=== PATIENT | female | born 1945 | race Caucasian/White ===

== ENCOUNTER → 2019-05-27 16:06 | Outpatient (CLI) | payer MEDICARE, SELFPAY ==
--- NOTE | ~2019-05-27 | XR_ITS ---
EXAMINATION: XR chest 2V EXAM DATE: 05/27/2019 16:22 INDICATION: Acute lower respiratory tract infection, flu. Cough and aches. History left-sided breast cancer. TECHNIQUE: Frontal and lateral projections of the chest obtained and reviewed. There is no prior eva dy for comparison. FINDINGS: Small amount of right middle lobe airspace disease consistent with developing pneumonia. T he lungs are otherwise clear. There are no pleural effusions. The cardiomediastinal silhouette is w ithin normal limits. There is no pneumothorax suspected. The bones and soft tissues are unremarkabl e. IMPRESSION: Right middle lobe subsegmental airspace disease could be developing pneumonia. Reviewed, dictated and finalized at location A. GHT FLAGMAN
== END ==
PROVIDERS: PCP Family Medicine; Visit Provider Family Medicine
DX: J22 Unspecified acute lower respiratory infection (principal)
CPT/HCPCS: 71046

== ENCOUNTER → 2019-06-26 12:46 | Outpatient (CLI) | payer MEDICARE, SELFPAY ==
--- NOTE | ~2019-06-26 | XR_ITS ---
XR chest 2V DATE: 06/26/2019 13:02 INDICATION: Pneumonia. Unspecified organism. TECHNIQUE: PA and lateral views COMPARISON: 05/27/2019 PA and lateral chest FINDINGS: Normal heart size. No hilar or mediastinal enlargement. No pulmonary infiltrate or consol idation, pulmonary vascular congestion or pleural effusion or pneumothorax. Suture anchor device at right humeral head. IMPRESSION: No active cardiopulmonary disease Reviewed, dictated and finalized at location B.
== END ==
PROVIDERS: PCP Family Medicine; Visit Provider Family Medicine
DX: J18.9 Pneumonia, unspecified organism (principal)
CPT/HCPCS: 71046

== ENCOUNTER 2019-10-26 13:21 | Outpatient (CLI) | payer MEDICARE, SELFPAY ==
[2019-10-26 13:36] LABS: Basophils Percent Auto 0.5 % (0.2-1.2); Eosinophils Absolute Auto 0.2 K/mm3 (0-0.3); Eosinophils Percent Auto 2.5 % (0-4.4); Hematocrit 44.7 % (37.0-47.0); Hemoglobin 14.8 g/dL (12.0-15.0); Immature Granulocyte Absolute 0.02 K/mm3 (0.00-0.031); Immature Granulocyte Percent A 0.3 % (0-0.5); Lymphocytes Percent Auto 31.5 % (18.3-44.2); Mean Corpuscular HGB Conc 33.1 g/dl (32-36); Mean Corpuscular Hemoglobin 29.5 pg (26-34); Mean Corpuscular Volume 89.2 fl (80-100); Mean Platelet Volume 9.1 fl (7.4-10.4); Monocytes Absolute Auto 0.7 K/mm3 (0.1-0.6); Monocytes Percent Auto 9.3 % (2.6-8.5); Neutrophils Absolute Auto 4.3 K/mm3 (1.3-6.7); Neutrophils Percent Auto 55.9 % (45.5-73.1); Platelet Count Result 224 k/mm3 (150-375); Red Blood Count 5.01 M/mm3 (4.2-5.4); White Blood Count 7.6 K/mm3 (4.5-10.0)
[2019-10-26 16:28] LABS: Alanine Aminotransferase 21 U/L (4-35); Albumin Level 4.4 g/dL (3.5-5.1); Alkaline Phosphatase 88 U/L (38-126); Aspartate Amino Transferase 33 U/L (14-36); Bilirubin,Total 0.3 mg/dL (0.2-1.3); Blood Urea Nitrogen 22 mg/dL (7-17); Calcium 9.2 mg/dL (8.4-10.2); Carbon Dioxide 24 mmol/L (22-30); Chloride 104 mmol/L (98-107); Estimated Glomerular Filt Rate 55; Glucose 91 mg/dL (65-105); Potassium 4.3 mmol/L (3.4-5.0); Sodium 136 mmol/L (137-145)
[2019-10-29 06:13] LABS: CA 27.29 32 U/mL (<38)
== END 2019-10-26 13:22 | disposition home or self-care (01) ==
PROVIDERS: PCP Family Medicine; Visit Provider Internal Medicine Hematology & Oncology
DX: C50.112 Malignant neoplasm of central portion of left female breast (principal)
CPT/HCPCS: 36415; 80053; 85025; 86300

== ENCOUNTER 2019-11-18 08:29 | Outpatient (CLI) | payer MEDICARE, SELFPAY ==
--- NOTE | ~2019-11-18 | DEXA_ITS ---
Bone Density Report Name: Karolina Sterling Age: 73 Sex: Female Ethnicity: White Date of : 1945 Indication: osteopenia; cancer; hysterectomy; Referring Provider: Neyda Kevin Study: Bone densitometry was performed. Exam Date: November 18, 2019 Accession number: [id number] Bone Density: Region BMD T-score Z-score Classification AP Spine (L1-L4) 0.900 -1.3 0.9 Osteopenia Femoral Neck (Left) 0.677 -1.6 0.4 Osteopenia Total Hip (Left) 0.872 -0.6 1.1 Normal Total Hip Bilateral Avg 0.890 -0.5 1.3 Normal Femoral Neck (Right) 0.682 -1.5 0.5 Osteopenia Total Hip (Right) 0.906 -0.3 1.4 Normal World Health Organization criteria for BMD impression classify patients as: Normal (T-score at or above -1.0), Osteopenia (T-score between -1.0 and -2.5), or Osteoporosis (T-score at or below -2.5). 10-year Fracture Risk(1): Major Osteoporotic Fracture 10% Hip Fracture 1.7% Reported Risk Factors: [place] (), Neck BMD=0.682, BMI=31.5 (1) FRAX(R) Version 3.08. Fracture probability calculated for an untreated patient. Fracture probability may be lower if the patient has received treatment. Previous Exams: Region Exam Age BMD T-score BMD Change BMD Change Date g/cm2 vs Baseline vs Previous AP Spine(L1-L4) 11/18/2019 73 0.900 -1.3 -0.013(-1.4%) -0.013(-1.4%) 09/03/2017 71 0.914 -1.2 Total Hip(Left) 11/18/2019 73 0.872 -0.6 -0.047(-5.1%)* -0.047(-5.1%)* 09/03/2017 71 0.919 -0.2 Total Hip(Right) 11/18/2019 73 0.906 -0.3 0.004(0.4%) 0.004(0.4%) 09/03/2017 71 0.903 -0.3 *Denotes significance at 95% confidence level, LSC for AP Spine = 0.022 g/cm2, LSC for Total Hip = 0.027 g/cm2 Clinical Information Provided by Patient: Has used the following medications: Vitamin D, Calcium Has the following medical conditions: Cancer, Hysterectomy Patient maximum height was 62.5 Menopause Age: 48 No regular weight bearing exercise Drinks caffeinated beverages Onset of menses at age 13 Number of children 1 Impression: The patient has low bone mass, based on the Left Femoral Neck T-score. The patient has an estimated ten-year risk of hip fracture of 1.7% and an estimated ten-year risk of major fracture of 10%, based on the WHO FRAX algorithm. The BMD for the Total Hip(Left) decreased, changing by -5.1% since the last DXA exam. Discussion: BONE DENSITY IS LOW AT ONE OR MORE SKELETAL SITES. This patient's lowest T-score is low at on
== END 2019-11-18 08:30 | disposition home or self-care (01) ==
PROVIDERS: PCP Family Medicine; Visit Provider Nurse Practitioner Adult Health
DX: Z79.811 Long term (current) use of aromatase inhibitors (principal); M85.88 Other specified disorders of bone density and structure, other site; M85.852 Other specified disorders of bone density and structure, left thigh; M85.851 Other specified disorders of bone density and structure, right thigh
CPT/HCPCS: 77080

== ENCOUNTER 2020-04-05 06:50 | Outpatient (NON) | payer MEDICARE, SELFPAY ==
[2020-04-05 18:45] LABS: SARS-CoV-2 RNA PCR Negative
== END 2020-04-05 06:51 ==
PROVIDERS: PCP Family Medicine; Visit Provider Physician Assistant
DX: R05 Cough (principal); Z20.828 Contact with and (suspected) exposure to other viral communicable diseases
CPT/HCPCS: 87635; C9803; U0003

== ENCOUNTER 2020-04-21 10:01 | Outpatient (CLI) | payer MEDICARE, SELFPAY ==
[2020-04-21 10:16] LABS: Basophils Percent Auto 0.6 % (0.2-1.2); Eosinophils Absolute Auto 0.1 K/mm3 (0-0.3); Eosinophils Percent Auto 1.9 % (0-4.4); Hematocrit 44.5 % (37.0-47.0); Hemoglobin 14.7 g/dL (12.0-15.0); Immature Granulocyte Absolute 0.02 K/mm3 (0.00-0.031); Immature Granulocyte Percent A 0.3 % (0-0.5); Lymphocytes Absolute Auto 2.15 K/mm3 (0.9-3.2); Lymphocytes Percent Auto 34.7 % (18.3-44.2); Mean Corpuscular Hemoglobin 29.5 pg (26-34); Mean Corpuscular Volume 89.4 fl (80-100); Mean Platelet Volume 9.5 fl (7.4-10.4); Monocytes Absolute Auto 0.6 K/mm3 (0.1-0.6); Monocytes Percent Auto 10.3 % (2.6-8.5); Neutrophils Absolute Auto 3.2 K/mm3 (1.3-6.7); Neutrophils Percent Auto 52.2 % (45.5-73.1); Platelet Count Result 214 k/mm3 (150-375); Red Blood Count 4.98 M/mm3 (4.2-5.4); Red Cell Distribution Width 12.7 % (11.5-14.5); White Blood Count 6.2 K/mm3 (4.5-10.0)
[2020-04-21 12:26] LABS: Alanine Aminotransferase 26 U/L (4-35); Albumin Level 4.1 g/dL (3.5-5.1); Alkaline Phosphatase 84 U/L (38-126); Anion Gap 7 mmol/L (8-16); Aspartate Amino Transferase 35 U/L (14-36); Bilirubin,Total 0.6 mg/dL (0.2-1.3); Blood Urea Nitrogen 20 mg/dL (7-17); Calcium 9.3 mg/dL (8.4-10.2); Carbon Dioxide 28 mmol/L (22-30); Chloride 104 mmol/L (98-107); Estimated Glomerular Filt Rate 49; Glucose 98 mg/dL (65-105); Potassium 4.5 mmol/L (3.4-5.0); Sodium 139 mmol/L (137-145)
[2020-04-26 06:14] LABS: CA 27.29 25 U/mL (<38)
== END 2020-04-21 10:02 | disposition home or self-care (01) ==
LOC: ANHLAB 10:02
PROVIDERS: PCP Family Medicine; Visit Provider Internal Medicine Hematology & Oncology
DX: C50.112 Malignant neoplasm of central portion of left female breast (principal); Z17.0 Estrogen receptor positive status [ER+]
CPT/HCPCS: 36415; 80053; 85025; 86300

== ENCOUNTER → 2020-06-10 09:25 | Outpatient (CLI) | payer MEDICARE, SELFPAY ==
--- NOTE | ~2020-06-10 | CT_ITS ---
EXAMINATION: CT sinus wo con EXAM DATE: 06/10/2020 09:38 INDICATION: Chronic sinusitis. Breast cancer. TECHNIQUE: Spiral CT of the sinuses was acquired in the axial plane. Coronal and sagittal reformatte d images were also reviewed. The dose-length product (DLP) for this examination was 269.39 mGy-cm. Iterative reconstruction (ASIR) was used as dose reduction technique. There is no prior study for co mparison. FINDINGS: The sinuses are normally developed. The sinuses are well aerated. The ostiomeatal unit s are patent. There is no sinus wall thickening. There is mild to moderate S-shaped nasal septal deviation. The mastoid air cells and middle ears are well aerated. External auditory canals are pa tent. The orbits and visualized soft tissues are unremarkable. IMPRESSION: Mild to moderate S-shaped nasal septal deviation. Clear sinuses. Reviewed, dictated and finalized at location A. OVEN TENDER
== END ==
PROVIDERS: PCP Family Medicine; Visit Provider Otolaryngology
DX: J32.9 Chronic sinusitis, unspecified (principal); J34.2 Deviated nasal septum
CPT/HCPCS: 70486

== ENCOUNTER 2021-02-28 01:02 | Day surgery (SDC) | payer MEDICARE, SELFPAY ==
[2021-02-14 14:05] VITALS: BMI 30.6
[2021-02-28 06:47] VITALS: BP 133/62; PULSE 80; RESP 16; TEMP 36.6; O2SAT 97; BMI 30.4
[2021-02-28] MEDS: LACTATED RINGERS 1,000 ML 150 ML IV CONT (07:08)
--- NOTE | 2021-02-28 07:22 | WPDANESEPPF ---
Anes - Initial Pre Proc Eval Procedure: Operation Date: 02/28/21 08:00 Proposed Procedures p Screening Colonoscopy - Sushant Soliman MD Date/Time: 02/28/21 07:22 Surgeon: Sushant Soliman MD Pre Op Diagnosis: neoplasm screening Patient Data Age: 75 Gender: F Height: 1.57 m Weight: 75.5 kg Last Vital Signs Temp 36.6 C 02/28/21 06:47 Pulse 80 02/28/21 06:47 Resp 16 02/28/21 06:47 BP 133/62 02/28/21 06:47 Pulse Ox 97 02/28/21 06:47 Allergies Allergy/AdvReac Type Severity Reaction Status Date / Time No Known Allergies Allergy Verified 02/28/21 06:56 Home Medications Medication Instructions Recorded Confirmed Type anastrozole 1 mg tablet 1 mg PO DAILY 03/09/20 02/28/21 History simvastatin 20 mg tablet 20 mg PO DAILY #90 tablet 05/13/20 02/28/21 Rx citalopram 20 mg tablet 30 mg PO DAILY #135 tablet 11/13/20 02/28/21 Rx levothyroxine 50 mcg tablet See Rx Instructions .ROUTE 02/06/21 02/28/21 Rx .COMPLEX #90 tablet Nexium 20 mg PO DAILY 02/14/21 02/28/21 History azelastine 2 spray INTRANASAL DAILY 02/14/21 02/28/21 History Patient hx anesthesia problems: none Family hx anesthesia problems: none Results Review: All pre-operative results and documents have been reviewed as part of the pre-operative evaluation. [facility] Past Medical History Medical History Breast cancer Chronic renal insufficiency, stage II (mild) Chronic renal insufficiency, stage III (moderate) Encounter for immunization FH: colon cancer Gastroesophageal reflux Hyperlipidemia, unspecified Hypothyroidism Immunodeficiency Major depressive disorder with single episode, in full remission Pure hypercholesterolemia Vitamin D deficiency Surgical History Surgical History H/O colonoscopy History of partial hysterectomy Family History Family History Mother Depression Family history of alcoholism Father Family history of malignant neoplasm Social History Social History Smoking packs per day: 0.25 Smoking cigarettes per day: 5.0 Years smoked: 1 Smoking pack-years: 0.25 Smoking status: Former smoker Tobacco type: cigarettes Second hand tobacco smoke exposure: No Alcohol intake: current Alcohol use details: socially Substance use: never Substance use type: does not use Living arrangements: with family Gender identity (if verbalized by the patient): Female Spiritual care concerns: No Anes - Eval Final PreProcedure Day of Procedure 02/28/21 07:22 Patient weight: obese Heart: regular rate and rhythm Lungs: clear to auscultation Airway: Mallampati scale class II Neurological: alert and oriented Last oral intake: >/= 8 hours ASA classification: III Emergent: no Anesthetic plan: proceed Anesthesia type and monitoring: general GIVS and standard monitoring Results Review: All pre-operative results and documents have been reviewed as part of the pre-operative evaluation. Informed Consent: The patient's anesthetic plan and its attendant risks and benefits were discussed with the patient/family/POA. Questions were solicited and answers provided to the satisfaction of the patient/family/POA.
--- NOTE | 2021-02-28 07:56 | WPDGICN ---
Assessment and Plan Assessment and plan (1) Family history of colon cancer in mother: Code(s): Z80.0 - Family history of malignant neoplasm of digestive organs Status: Acute Assessment and Plan: Patient is a family history of colon cancer in both mother and father. For this reason surveillance colonoscopy is recommended now and at intervals in the future. Further recommendations will be given after endoscopy. GI Consult Note Consult date/time: 02/28/21 07:56 HPI: Karolina Sterling is a 75 year old female Presents for screening colonoscopy. Patient's current weight appetite and bowel movements are normal. She denies abdominal pain. She has had no bleeding. Her last colonoscopy 2004. Family history is significant both mother and father have had colon cancer. Patient states that her weight appetite bowel movements are normal. She denies abdominal pain Review of Systems Review of Systems: All systems reviewed & are unremarkable except as noted in HPI and below PMFSH Past Medical History Medical History Breast cancer Chronic renal insufficiency, stage II (mild) Chronic renal insufficiency, stage III (moderate) Encounter for immunization FH: colon cancer Gastroesophageal reflux Hyperlipidemia, unspecified Hypothyroidism Immunodeficiency Major depressive disorder with single episode, in full remission Pure hypercholesterolemia Vitamin D deficiency Surgical History Surgical History H/O colonoscopy History of partial hysterectomy Family History Family History Mother Depression Family history of alcoholism Father Family history of malignant neoplasm Social History Social History Smoking packs per day: 0.25 Smoking cigarettes per day: 5.0 Years smoked: 1 Smoking pack-years: 0.25 Smoking status: Former smoker Tobacco type: cigarettes Second hand tobacco smoke exposure: No Alcohol intake: current Alcohol use details: socially Substance use: never Substance use type: does not use Living arrangements: with family Gender identity (if verbalized by the patient): Female Spiritual care concerns: No Meds Home Medications and Allergies Home Medications Medication Instructions Recorded Confirmed Type anastrozole 1 mg tablet 1 mg PO DAILY 03/09/20 02/28/21 History simvastatin 20 mg tablet 20 mg PO DAILY #90 tablet 02/05/21 11/23/21 Rx citalopram 20 mg tablet 30 mg PO DAILY #135 tablet 11/13/20 02/28/21 Rx levothyroxine 50 mcg tablet See Rx Instructions .ROUTE 02/06/21 02/28/21 Rx .COMPLEX #90 tablet Nexium 20 mg PO DAILY 02/14/21 02/28/21 History azelastine 2 spray INTRANASAL DAILY 02/14/21 02/28/21 History Allergies Allergy/AdvReac Type Severity Reaction Status Date / Time No Known Allergies Allergy Verified 02/28/21 06:56 Vital Signs Vital Signs - 24 hr 02/28/21 06:47 Temperature 97.8 F Pulse Rate 80 Respiratory Rate 16 Blood Pressure 133/62 Pulse Oximetry 97 Exam Narrative: physical exam reveals patient to be alert. Vital Signs in stable. HEENT exam is unremarkable. Patient is anicteric. Lungs are clear to auscultation and percussion. Heart is without murmur or extra sounds. Abdominal exam bowel sounds are present soft nontender with no hepatosplenomegaly. Digital external rectal exam is normal.
[2021-02-28 08:30] VITALS: BP 102/55; PULSE 78; RESP 22; O2SAT 96
[2021-02-28 08:40] VITALS: BP 118/58; PULSE 66; RESP 24; O2SAT 97
[2021-02-28 08:50] VITALS: BP 128/72; PULSE 68; RESP 22; O2SAT 98
== END 2021-02-28 09:01 | disposition home or self-care (01) ==
PROVIDERS: PCP Family Medicine; Visit Provider Internal Medicine Gastroenterology
PROC: 0DJD8ZZ Inspection of Lower Intestinal Tract, Via Natural or Artificial Opening Endoscopic (ICD-10-PCS; CPT 45378; principal; 2021-02-28 08:00)
DX: Z12.11 Encounter for screening for malignant neoplasm of colon (principal); K57.30 Diverticulosis of large intestine without perforation or abscess without bleeding; K64.8 Other hemorrhoids; Z80.0 Family history of malignant neoplasm of digestive organs; K21.9 Gastro-esophageal reflux disease without esophagitis; N18.30 Chronic kidney disease, stage 3 unspecified; E78.5 Hyperlipidemia, unspecified; E03.9 Hypothyroidism, unspecified; E78.00 Pure hypercholesterolemia, unspecified; E55.9 Vitamin D deficiency, unspecified; Z87.891 Personal history of nicotine dependence; Z85.3 Personal history of malignant neoplasm of breast
CPT/HCPCS: G0105; J2704; J7120

== ENCOUNTER → 2021-10-17 09:06 | Outpatient (CLI) | payer MEDICARE, SELFPAY ==
--- NOTE | ~2021-10-17 | XR_ITS ---
XR lumbar spine 2-3V DATE: 10/17/2021 09:33 INDICATION: Low back pain TECHNIQUE: AP, lateral, coned lateral lumbosacral views COMPARISON: None FINDINGS: Osteopenia. Severe degenerative disc disease at L5-S1 1. Mild degenerative disc disease at L1-L3 4, L4-5. Prominent degenerative change is noted lower thoracic spine. No fracture or bone destruction or spondylolisthesis. The lumbar pedicles are intact. Degenerative change at the apophyseal joints of lower lumbar and lumbosacral area. The sacroiliac joints are intact. IMPRESSION: Osteopenia Prominent degenerative spurring of the lower thoracic spine Severe degenerative disc disease at L5-S1 and mild degenerative disc disease elsewhere in the lumbar spine Reviewed, dictated and finalized at location A. IMPRESSION: Osteopenia Prominent degenerative spurring of the lower thoracic spine Severe degenerative disc disease at L5-S1 and mild degenerative disc disease el sewhere in the lumbar spine
== END ==
PROVIDERS: PCP Family Medicine; Visit Provider Family Medicine
DX: M54.50 Low back pain, unspecified (principal); M85.88 Other specified disorders of bone density and structure, other site; M77.8 Other enthesopathies, not elsewhere classified; M51.36 Other intervertebral disc degeneration, lumbar region
CPT/HCPCS: 72100

== ENCOUNTER 2023-05-20 08:55 | Outpatient (CLI) | payer OTHER, SELFPAY | END 2023-05-20 08:56 | disposition home or self-care (01) | LOC: ANHAUDIO 08:55 | PROVIDERS: PCP Family Medicine; Visit Provider Family Medicine | DX: H90.3 Sensorineural hearing loss, bilateral (principal); H93.13 Tinnitus, bilateral | CPT/HCPCS: 92557; 92567 ==

== ENCOUNTER 2024-08-13 08:56 | Outpatient (CLI) | payer MEDICARE, SELFPAY ==
--- OUTSIDE RECORDS SUMMARY | 2024-08-13 09:08 | XMS_ITS | Clinical Summary ---
Author Organization [facility] Address [address] [place] [address] Care Team Providers Care Farm Loan Inspector Name Role Phone Leda Ortiz MD Primary Care Provider [phone] Allergies No known active allergies Medications citalopram (CeleXA) 20 mg tablet Take 10 mg by mouth daily at bedtime. Active simvastatin (ZOCOR) 20 mg tablet Take 20 mg by mouth late in the day. Active levothyroxine 50 mcg tablet Take 50 mcg by mouth daily early childhood lead teacher. Active ergocalciferol , vitamin D2, (VITAMIN D ORAL) Take 5,000 mg by mouth daily . Active calcium carbonate (CALCIUM 300 ORAL) Take by mouth daily. Active diclofenac sodium (VOLTAREN) 75 mg Tablet, Delayed Release (E.C.) 9 Active montelukast (SINGULAIR) 10 mg tablet 9 Active clarithromycin (BIAXIN) 500 mg tablet clarithromycin 500 mg tablet Active doxycycline hyclate (VIBRAMYCIN) 100 mg capsule doxycycline hyclate 100 mg capsule Active venlafaxine (EFFEXOR XR) 75 mg Extended Release 24 hour capsule Take 1 Capsule (75 mg) by mouth daily. 30 Capsule 4 0 Active loratadine (CLARITIN) 10 mg tablet Active multivitamin (DAILY-MARCIA) tablet Active levothyroxine 175 mcg tablet Activ e simvastatin (ZOCOR) 80 mg tablet Active calcium as carbonate (TUMS ES) 750 mg (300 mg elemental) Tablet, Chewable Take by mouth. Activ e ergocalciferol (VITAMIN D2) 200 mcg/mL (8,000 unit/mL) Drops Take 5,000 mg by mouth. Active anastrozole (ARIMIDEX) 1 mg tabletIndicati ons:Malignant neoplasm of central portion of left breast in female, estrogen receptor positive (CMS/HCC) Take 1 Tablet (1 mg) by mouth daily. 90 Tablet 3 1 Active omeprazole (PriLOSEC) 40 mg Capsule, Delayed Release(E.C.) TAKE 1 CAPSULE BY MOUTH 30 MINUTES BEFORE MORNING MEAL ONCE A DAY FOR 90 DAY(S) 1 Active azelastine (ASTELIN) 137 mcg/actuation nasal spray INSTILL 2 SPRAYS INTRANASALLY TWICE DAILY 2 Active Active Problems Problem Noted Date Diagnosed Date Osteopenia of lumbar spine 11/02/2019 Malignant neoplasm of centra l portion of left breast in female, estrogen receptor positive 10/16/2017 Aromatase inhibitor use 10/16/2017 Postoperative seroma of subc utaneous tissue after non-dermatologic procedure 07/17/2017 Fatigue 07/17/2017 Osteoarthritis of carpometac arpal (CMC) joints of both thumbs 07/17/2017 Age related osteoporosis 06/05/2017 Resolved Problems Problem Noted Date Diagnosed Date Resolved Date SERM use (selective estrogen receptor modulator) 02/09/2019 02/09/2019 Estrogen receptor positive 10/16/2017 1 04/11/2018 Malignant neoplasm of lower- outer quadrant of breast of female, estrogen receptor positive 01/30/2017 02/09/2019 Encounters Date Type Department Care Team Description 08/13/2024 Orders Only [facility] Oncology and Hematology - [place] [address] [place] [id number] Chris Ravi MD Malignant neoplasm of central portion of left breast in female, estrogen receptor positive (CMS/HCC) (Primary Dx) 06/24/2024 External Device Data STL ABSTRACTION Provider, Abstract 06/13/2024 External Device Data STL ABSTRACTION Provider, Abstract 06/12/2024 External Device Data STL ABSTRACTION Provider, Abstract 05/26/2024 External Device Data STL ABSTRACTION Provider, Abstract from Last 3 Months Family History Medical History Relation Name Comments Cancer Father Cancer Mother Cancer Sister Relation Name Status Comments Father Mother Sister Social History Tobacco Use Types Packs/Day Years Used Date Smoking Tobacco: Former Cigarettes 0.5 1 1 - 01/30/1969 Smokeless Tobacco: Never Tobacco Cessation:Counseling Given: Not Answered Alcohol Use Standard Drinks/Week Comments Yes 0 (1 standard drink = 0.6 oz pur e alcohol) occasional Comments No Sex and Gender Information Value Date Recorded Sex Assigned at Not on file Legal Sex Female 3:30 PM CDT Gender Identity Not on file Sexual Orientation Not on file Last Filed Vital Signs Vital Sign Reading Time Taken Comments Blood Pressure 134/74 08/01/2023 10:01 AM CDT Pulse 69 08/01/2023 10:01 AM CDT Temperature 36.6 C (97.9 F) 08/01/2023 9:58 AM CDT Respiratory Rate 16 08/01/2023 9:58 AM CDT Oxygen Saturation 97% 08/01/2023 9:58 AM CDT Inhaled Oxygen Concentration - - Weight 75.9 kg (167 lb 6.4 oz) 08/01/2023 9:58 A M CDT Height 157.5 cm (5' 2 ) 11/01/2021 9:51 AM CDT Body Mass Index 30.62 11/01/2021 9:51 AM CDT Plan of Treatment Upcoming Encounters Date Type Department Care Team (Late st Contact Info) Description 08/21/2024 10:45 AM CDT Office Visit [facility] Oncology and Hematology - [place] [address] [facility] [address] [place] [address] Chris Ravi MD [address] [place] [address] Health Maintenance Due Date Last Done Comments DTAP/TDAP/TD VACCINES (1 - Tdap) 1965 PNEUMOCOCCAL VACCINE 50+ YEA RS (1 of 1 - PCV) 1996 ZOSTER VACCINE (1 of 2) 1996 RSV VACCINE (60+ or ) (1 - 1-dose 75+ series) 2021 INFLUENZA VACCINE (#1) 2023 COVID-19 Vaccine (3 - season) 2023, 05/28/2020 [place] Prev entative Visit/Annual Wellness Visit 04/08/2024 OSTEOPOROSIS SCREENING 11/23/2024 0, 09/03/2017, 09/03/2017 Procedures Procedure Name Priority Date/Time Associated Diagnosis Comments XR DEXA BONE DENSITY AXIAL 1 OR MORE SITES Routine 11/24/2019 Aromatase inhibitor use from Last 3 Months or Most Recently Relevant to Health Maintenance Results * XR DEXA BONE DENSITY AXIAL 1 OR MORE SITES (11/24/2019) Anatomical Region Laterality Modality Other Ney[facility] ORDER[facility] BLES Final Result from Last 3 Months or Most Recently Relevant to Health Maintenance Insurance MCR Care Teams Farm Loan Inspector Relationship Specialty Start Date End Date Leda Ortiz MD [address] [place] [id number] PCP - General Family Practice 04/15/19
--- OUTSIDE RECORDS SUMMARY | 2024-08-13 09:08 | XMS_ITS | Encounter Summary ---
Author Organization [facility] Address [address] [place] [address] Care Team Providers Care Cycle Counter Name Role Phone Leda Ortiz MD Primary Care Provider Encounter Details Date Type Department Care Team ([facility] Contact Info) Description 08/07/2018 Chart Note [facility] Radiation Therapy [address] [place] [id number] [place] [address] [place] [address] Social History Tobacco Use Types Packs/Day Years Used Date Smoking Tobacco: Former Cigarettes 0.5 1 1 - 01/30/1969 Smokeless Tobacco: Never Alcohol Use Standard Drinks/Week Comments Yes 0 (1 standard drink = 0.6 oz pur e alcohol) occasional Comments No Sex and Gender Information Value Date Recorded Sex Assigned at Not on file Legal Sex Female 3:30 PM CDT Gender Identity Not on file Sexual Orientation Not on file documented as of this encounter Plan of Treatment Upcoming Encounters Date Type Department Care Team (Late Contact Info) Description 08/21/2024 10:45 AM CDT Office Visit [facility] Oncology and Hematology - [place] [address] [facility] [address] [place] [address] Chris Ravi MD [address] [facility] [address] [place] [address] documented as of this encounter Visit Diagnoses Not on filedocumented in this encounter Care Teams Cycle Counter Relationship Specialty Start Date End Date Leda Ortiz MD [address] [place] [address] PCP - General Family Practice 04/15/19 documented as of this encounter
--- OUTSIDE RECORDS SUMMARY | 2024-08-13 09:08 | XMS_ITS | Encounter Summary ---
Author Organization [facility] [employer] [facility] Address [address] [place] [address] Care Team Providers Care Linux Programmer Name Role Phone Leda Ortiz MD Primary Care Provider [phone] Encounter Details Date Type Department Care Team ([facility] Contact Info) Description 08/13/2024 Orders Only [facility] Oncology and Hematology [facility] [address] [place] [address] Chris Ravi MD [address] [place] [address] Malignant neoplasm of central portion of left breast in female, estrogen receptor positive (CMS/HCC) (Primary Dx) Social History Tobacco Use Types Packs/Day Years [...] Upcoming Encounters Date Type Department Care Team ([facility] Contact Info) Description 08/21/2024 10:45 AM CDT Office Visit [facility] Oncology and Hematology [facility] [address] [place] [address] Chris Ravi MD [address] [place] [address] Scheduled Orders Name Type Priority Associated Diagnoses Orde r Schedule CANCER ANTIGEN 15-3 Lab Routine Malignant neoplasm of central portion of left breast in female, estrogen receptor positive (CMS/HCC) Expected: 08/13/2024, Expires: 08/13/2025 CBC WITH DIFFERENTIAL Lab Routine Malignant neoplasm of central portion of left breast in female, estrogen receptor positive (CMS/HCC) Expected: 08/13/2024, Expires: 08/13/2025 COMPREHENSIVE METABOLIC PANEL Lab Routine Malignant neoplasm of central portion of left breast in female, estrogen receptor positive (CMS/HCC) Expected: 08/13/2024, Expires: 08/13/2025 documented as of this encounter Visit Diagnoses Diagnosis Malignant neoplasm of central portion of left breast in female, estrogen receptor positive (CMS/HCC)- Primary documented in this encounter Care Teams Linux Programmer Relationship Specialty Start Date End Date Leda Ortiz MD [address] [place] [address] PCP - General Family Practice 04/15/19 documented as of this encounter
--- OUTSIDE RECORDS SUMMARY | 2024-08-13 09:08 | XMS_ITS | Data Portability ---
Author Organization [place] [facility] [employer], Main Office Address [address] [place] [address] Care Team Providers Care General Claims Agent Name Role Phone RENU MORALES Primary Care Provider RENU MORALES Referring Provider Assessment Encounter Date Assessment Date Assessment LastModified by Organization Details LastModified Time 02/07/2023 02/07/2023 HPI 77-year-old female who came in today for evaluation of her right knee pain. Her symptoms started little more than a month ago. She went to [place] for a week for vacation and was doing a lot walking while she was there. The right knee started bothering her more more after that. Most pain is over the medial aspect of the knee. Prior to her going to [place] she noticed that she was on feet for longer periods of time it would be painful but not to this degree. She is having a little bit of symptoms in the left knee but overall very mild. Patient had arthroscopies done to both of her knees more than 10 years ago. Patient is point is taking Tylenol for discomfort. She was told by her primary care doctor not to take anti-inflammatori es. She did not know the specific reason for this. Physical exam: 77-year-old female she is 5 ft 1 162 lb and BMI is 30.6. She has mild effusion in the right knee. Range of motion is from 5-130 degrees. Moderate tenderness over the mid medial joint line no lateral joint line tenderness. Mild patellofemoral grind. 2+ dorsalis pedis pulse. Hip range of motion is full without discomfort. She walks well without limp or assistance. Normal ligament exam in the knee. After ChloraPrep was used on skin 20 mg Kenalog and 3 cc of 0.5% ropivacaine was injected into the right knee. Risk of infection discussed. Impression: 77-year-old female who has moderately severe medial compartment osteoarthritis in the right knee. I discussed x-ray findings with her. We talked about treatment options. She is going to talk with her primary care doctor about the use of NSAIDs and determine whether not it is safe for her to use these are not. If she is not able to we discussed maximum dosing of Tylenol that she can utilize. We talked about injections in the knee and patient wished to proceed with that today. She tolerated the injection well. At some point she may need to have total knee arthroplasty given the severity of her knee arthritis and she is hoping to not have to have this done. We will make an appointment to come back in a month for re-evaluation. If she is doing very well she will call and cancel. We discussed she can repeat cortisone injections as often as every 3 months. 30 minutes was spent in treatment patient more than half of this in [id number] conversation Not available 02/07/2023 13:50:43 03/07/2023 03/07/2023 patient returns. She had a cortisone shot in the right knee 1 month ago which helped her greatly. X-rays at that time showed at least moderately severe medial compartment osteoarthritis in the right knee. I suspect, based on the degree of osteophyte formation medially, that with a PA flexion start few she might be [id number]. The cortisone shot helped her a great deal. She sees Dr. Morales on April 11 and will discuss whether she would be safe to take nonsteroidal anti-inflammatory medication. However, I have discussed possible side effects with her and she may be inclined to avoid these. She is thinking about knee replacement surgery but if the cortisone shot lasts very well and she gets excellent relief she would be content to continue to observe and get the cortisone shots periodically. I have provided her with the Ortho info handout on total knee arthroplasty for her review. I will see her back in 2 months to assess her progress. If she would like another cortisone shot of the right knee she can do so at that time. If she would like to discuss the option of knee replacement we can discuss that further at that time as well. For [email or web address] Not available 03/07/2023 10:22:07 05/23/2023 05/23/2023 HPI: Patient returns. She had a cortisone injection 3 months ago on the right knee which worked well for her. She has [id number]-[id number] medial compartment osteoarthritis on the PA flexion view. She does not feel she is ready to discuss surgery at this point. She wishes to have another injection today. Physical exam: 77-year-old female alert pleasant. She walks well. She has mild effusion. Moderate tenderness over the medial joint line to palpation. Range of motion is from 0-135 degrees. No swelling in lower extremity. After alcohol and Betadine prep 20 mg Kenalog and 3 cc of 0.5% ropivacaine was injected into the right knee. Impression: 77-year-old female who has dtzy-wc-hyjd medial compartment osteoarthritis on the PA flexion. Cortisone injections are working well for her and she wishes to continue with this regimen. Will see her in 3 months. Not available 05/24/2023 12:06:25 Plan of Treatment Reminders Order Date Submit Date Provider Last Modified By Organization Details Last Modified Time Details Appointments None recorded. Lab None recorded. Referral None recorded. Procedures injection/a spiration joint/bursa (PROC) - in office procedure, administere d by provider 2023 024 [email or web address] In-Office Order, Internal Use Only DO Not Attach Compendium DO Not Attach Compendium, Do Not Delete/merge, [id number] 10:36:31 injection/a spiration joint/bursa (PROC) - in office procedure, administere d by provider 2022 023 [email or web address] In-Office Order, Internal Use Only DO Not Attach Compendium DO Not Attach Compendium, Do Not Delete/merge, [id number] 11:27:24 Surgeries None recorded. Imaging XR, knee 2022 023 [email or web address] [facility], [address] [place] [address], [place], [address], 3 14:11:33 Medication Orders Kenalog 10 mg/mL suspension for injection 2023 024 [email or web address] [facility] [address] In [facility], [address] [place] [address] [place], [address], 4 13:57:22 ropivacaine (PF) 5 mg/mL (0.5 %) injection solution 2023 024 [email or web address] [facility] [address], [address], 4 13:57:22 Kenalog 10 mg/mL suspension for injection 2022 023 [email or web address] [facility] [address], [address], 3 13:54:27 ropivacaine (PF) 5 mg/mL (0.5 %) injection solution 2022 023 [email or web address] [facility] [address], [address], 3 13:54:27 Patient TargetsNo targets recorded. Patient InstructionsNo instructions recorded. Reason for Referral None Reported. Results Created Date Observation Date Name Description Value Unit Range Abnormal Flag Note LastModifiedBy Organization Detail LastModifiedTime 02/08/20 23 XR, knee No observ ation record ed. [email or web address] [facility] [address] [facility], [place], [address], 02/07/2023 13:46:30 Result Notes None recorded. Problems Name Problem SNOMED Code Status Onset Date Resolution Date Notes Provider Name and Address Organization Details Recorded Time Osteoarthr itis 246663469 Active Not Available [facility] 3 13:18:04 Pain in limb 01421670 Active Not Available [facility] 3 13:18:04 Pain of right knee joint 2857511681241 00 Active 2022 TAYLOR Long null, [place] [facility] [place] [facility] [employer] [facility] 3 10:47:05 Osteoarthr itis of right knee joint 2630734518656 00 Active 2023 TAYLOR Long null, [place] [facility] 4 09:57:57 Problem Notes None recorded. Procedures Surgical History None recorded. Imaging Results Imaging Date Name Status LastModified by Organiz ation Details LastModified Time 02/07/2023 XR, knee completed [email or web address] [facility] [place] [address], [place], [address], 02/07/2023 13:46:30 Procedure Notes None recorded. Medical Equipment None Reported. Allergies No known drug allergies Medications Name Sig Start Date Stop Date Status Note LastModified by Organization Details LastModified Time anastrozole 1 mg tablet 02/07 completed Not Available Not Available Not Available prednisone 10 mg tablet TAKE 5 TABLETS BY MOUTH ONCE DAILY FOR 5 DAYS 05/23 completed Not Available Not Available Not Available doxycycline hyclate 100 mg capsule TAKE 1 CAPSULE BY MOUTH TWICE A DAY FOR 7 DAYS active Not Available Not Available No t Available azithromyci n 250 mg tablet TAKE 2 TABLETS BY MOUTH TODAY, THEN TAKE 1 TABLET DAILY FOR 4 DAYS DIRECTED 05/23 completed Not Available Not Available Not Available clarithromy eliel 500 mg tablet 02/07 completed Not Available Not Available Not Available citalopram 20 mg tablet TAKE 1 TABLET BY MOUTH EVERY DAY active Not Available Not Available No t Available Kenalog 10 mg/mL suspension for injection in office 2023 active ND: 0003- 0494- 20 Not Available Not Available Not Available levothyroxi ne 50 mcg tablet TAKE 1 TABLET BY MOUTH EVERY DAY active Not Available Not Available No t Available simvastatin 20 mg tablet TAKE 1 TABLET BY MOUTH DAILY active Not Available Not Available No t Available montelukast 10 mg tablet 02/07 completed Not Available Not Available Not Available nitrofurant oin monohydrate /macrocryst als 100 mg capsule TAKE 1 CAPSULE BY MOUTH EVERY 12 HOURS FOR 5 DAYS WITH MEALS/JESSICA D 05/23 completed Not Available Not Available Not Available ropivacaine (PF) 5 mg/mL (0.5 %) injection solution in office 2023 active [facility] [address]75 -064- 01 Not Available Not Available Not Available Vitals Date Recorded Body height Body mass index (BMI) Body weight Provider Name and Address Organization Details Last Updated DateTime 02/07/2023 154.94 cm 30.6 kg/m2 24960.96 g TAYLOR Long [facility] [employer] [facility] 02/07/2023 10:59:22 Date Recorded Body height Provider Name an d Address Organization Details Last Updated DateTime 03/07/2023 154.94 cm TAYLOR Long [facility] [employer] [facility] 03/07/2023 09:59:59 Date Recorded Body height Provider Name an d Address Organization Details Last Updated DateTime 05/23/2023 154.94 cm TAYLOR Long [facility] [employer] [facility] 05/23/2023 09:57:00 Social History Question Answer Notes LastModified by Organizat ion Details LastModified Time Tobacco Smoking Status Never Smoker TAYLOR Long [place] [facility] [employer] [facility] 02/07/2023 10:46:03 What Is Your Level Of Alcohol Consumption? None Information not available 02/07/2023 Sex: Unknown Functional Status None recorded. Mental Status None recorded. Family History Relationship Description Onset Age of this Age Resolved Age Notes LastModified by Organization Details LastModified Time Daughter Family history of malignant neoplasm [email or web address] Not available 2022 10:45:57 Father Family history of malignant neoplasm [email or web address] Not available 2022 10:45:57 Mother Family history of malignant neoplasm [email or web address] Not available 2022 10:45:57 Medical History Condition Response ARTHRITIS Y Gynecological HistoryNo gynecological history recorded. Obstetrics History GPAL:G 0 P 0 0 0 0 Past Encounters Encounter ID Performer Location Encounter Start Date Encounter Closed Date Diagnosis/Indication Diagnosis SNOMED-CT Code Diagnosis ICD10 Code Diagnosis Note [id number] MD [facility] [address] [address] 02/07/2023 10:13:17 02/07/2023 14:11:33 Pain of right knee joint 4764421348 13266 M25.414 [id number] MD [facility] [address] [address] 03/07/2023 09:38:03/07/2023 10:23:34 Pain of right knee joint 0706688597 65132 M25.157 [id number] Dustin Cole MD [facility] [place] [address] [place] [address] 05/23/2023 09:51:03 05/24/2023 15:46:54 Osteoarthritis of right knee joint 1237497776 32646 M17.11 Health Concerns Section Related Observation LastModified by Organization Detai ls LastModified Time None Recorded Concern Status LastModified by Organization Details LastModified Time None Recorded Advance Directives Directive None Recorded Payers Encounter Date Sequence Insurance Name Policy Number Policy Shields Covered Member ID Shields Member ID Guarantor Name 02/07/2023 1 [facility] (MEDICARE REPLACEMENT/A DVANTAGE - HMO) [id number] Karolina A Hallie [id number] Karolina A Hallie 03/07/2023 1 [facility] (MEDICARE REPLACEMENT/A DVANTAGE - HMO) [id number] Karolina A Hallie [id number] Karolina A Hallie 05/23/2023 1 [facility] (MEDICARE REPLACEMENT HMO) [id number] Karolina A Hallie [id number] Karolina A Hallie OBGyn Episode No OBEpisode recorded.
--- OUTSIDE RECORDS SUMMARY | 2024-08-13 09:08 | XMS_ITS | Clinical Summary ---
Author Organization [facility] Address [address] [address] Care Team Providers Care Factory Lay Out Engineer Name Role Phone Leda Ortiz MD Primary Care Provider [phone] Source Comments [facility] [employer],non-owned Affiliates and Associated Physician Practices is amultiple site organization consisting of ambulatory clinics and hospital sitesin [place], [place], [place] and [place]. This disclosure is being madepursuant to the Care Everywhere program and may not contain all information available regarding this patient. 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 [employer] Gender Identity Not on file Sexual Orientation Not on file Last Filed Vital Signs Vital Sign Reading Time Taken Comments Blood Pressure - - Pulse - - Temperature - - Respiratory Rate - - Oxygen Saturation - - Inhaled Oxygen Concentration - - Weight 74.8 kg (165 lb) 09/06/2023 9:20 AM CDT Height 157.5 cm (5' 2 ) 09/06/2023 9:20 AM CDT Body Mass Index 30.18 09/06/2023 9:20 AM CDT Plan of Treatment Health Maintenance Due Date Last Done Comments MEDICARE AWV 12 MONTHS 1945 HEPATITIS C SCREENING 11/20/1964 DTAP/TDAP/TD VACCINES (1 - Tdap) 1965 PNEUMOCOCCAL VACCINE 50+ (1 of 1 - PCV) 1996 ZOSTER VACCINE (1 of 2) 1996 Respiratory Syncytial Virus (RSV) Vaccine Pt: or over 60 yrs (1 - 1-dose 75+ series) 2021 COVID-19 VACCINE (3 - 2023-2 5 season) 2023 06/18/2020, 05/28/2020 DEPRESSION SCREENING 04/08/2024 INFLUENZA VACCINE (Season Ended) 2024 BONE DENSITY TESTING Completed 11/24/2019, 09/03/2017 HEPATITIS B VACCINE Aged Out No longe r eligible based on patient's age to complete this topic HIB VACCINE Aged Out No longer eligi ble based on patient's age to complete this topic HPV VACCINE Aged Out No longer eligi ble based on patient's age to complete this topic MENINGOCOCCAL (Group B) VACCINE SHARED DECISION-MAKING Aged Out No longer eligible based on patient's age to complete this topic MENINGOCOCCAL GROUPS A/C/Y/W VACCINE Aged Out No longer eligible b ased on patient's age to complete this topic Insurance [employer] MEDICARE MEDICARE [place] [facility] MANAGED MEDICARE ADV Care Teams Factory Lay Out Engineer Relationship Specialty Start Date End Date Leda Ortiz MD [address] [place] [address] PCP - General Family Medicine 01/16/18
--- OUTSIDE RECORDS SUMMARY | 2024-08-13 09:08 | XMS_ITS | CONTINUITY OF CARE DOCUMENT ---
Author Name tiffani nixon Address Unknown Organization [facility] Address [address] [place] [address] Phone [phone] Care Team Providers Care Wood Setter Name Role Phone [place] GARRETT, Zac Unavailable [phone] CARMEN GARRETT, RENU Wolf Unavailable INSURANCE PROVIDERS Payer name Policy type / Coverage type [place] red green party ID MEDICARE SECONDARY [place] Medicare [id number] BLUE PREFERRED O [facility] [id number]
[2024-08-13 09:12] LABS: Basophils Percent Auto 0.8 % (0.2-1.2); Eosinophils Absolute Auto 0.2 K/mm3 (0-0.3); Eosinophils Percent Auto 4.1 % (0-4.4); Hematocrit 44.4 % (37.0-47.0); Hemoglobin 14.7 g/dL (12.0-15.0); Immature Granulocyte Absolute 0.01 K/mm3 (0.00-0.031); Immature Granulocyte Percent A 0.2 % (0-0.5); Lymphocytes Absolute Auto 1.64 K/mm3 (0.9-3.2); Lymphocytes Percent Auto 33.4 % (18.3-44.2); Mean Corpuscular HGB Conc 33.1 g/dl (32-36); Mean Corpuscular Hemoglobin 30.6 pg (26-34); Mean Corpuscular Volume 92.3 fl (80-100); Mean Platelet Volume 9.1 fl (7.4-10.4); Monocytes Absolute Auto 0.5 K/mm3 (0.1-0.6); Neutrophils Absolute Auto 2.5 K/mm3 (1.3-6.7); Neutrophils Percent Auto 50.5 % (45.5-73.1); Platelet Count Result 203 k/mm3 (150-375); Red Blood Count 4.81 M/mm3 (4.2-5.4); Red Cell Distribution Width 12.8 % (11.5-14.5); White Blood Count 4.9 K/mm3 (4.5-10.0)
[2024-08-13 09:43] LABS: Alanine Aminotransferase 22 U/L (6-35); Albumin Level 4.1 g/dL (3.5-5.1); Alkaline Phosphatase 59 U/L (38-126); Anion Gap 6 mmol/L (4-12); Aspartate Amino Transferase 38 U/L (14-36); Bilirubin,Total 0.5 mg/dL (0.2-1.3); Blood Urea Nitrogen 20 mg/dL (7-17); Carbon Dioxide 27 mmol/L (22-30); Chloride 106 mmol/L (98-107); Estimated Glomerular Filt Rate 54; Glucose 83 mg/dL (65-110); Potassium 4.4 mmol/L (3.4-5.0); Sodium 139 mmol/L (137-145)
[2024-08-15 02:59] LABS: CA 15-3 20 U/mL (<32)
== END 2024-08-13 08:57 | disposition home or self-care (01) ==
LOC: ANHLAB 08:58
PROVIDERS: PCP Family Medicine; Visit Provider Internal Medicine Hematology & Oncology
DX: C50.112 Malignant neoplasm of central portion of left female breast (principal); Z17.0 Estrogen receptor positive status [ER+]
CPT/HCPCS: 36415; 80053; 85025; 86300

== ENCOUNTER 2024-10-30 07:55 | Outpatient (CLI) | payer MEDICARE, SELFPAY ==
--- NOTE | ~2024-10-30 | DEXA_ITS ---
Bone Density Report Name: MANGO HERRERA Age: 78 Sex: Female Ethnicity: White Date of : 1945 Indication: osteopenia; cancer; Referring Provider: RENU MORALES Study: Bone densitometry was performed. Exam Date: October 30, 2024 Accession number: [id number] Bone Density: Region BMD T-score Z-score Classification AP Spine(L1-L4) 0.954 -0.8 1.7 Normal Femoral Neck (Left) 0.691 -1.4 0.8 Osteopenia Total Hip (Left) 0.877 -0.5 1.4 Normal Femoral Neck (Right) 0.656 -1.7 0.5 Osteopenia Total Hip (Right) 0.831 -0.9 1.0 Normal Total Hip Mean 0.854 -0.7 1.2 Normal World Health Organization criteria for BMD impression classify patients as: Normal (T-score at or above -1.0), Osteopenia (T-score between -1.0 and -2.5), or Osteoporosis (T-score at or below -2.5). 10-year Fracture Risk(1): Major Osteoporotic Fracture 13% Hip Fracture 3.1% Reported Risk Factors: [place] (), Neck BMD=0.656, BMI=30.5 (1) FRAX(R) Version 3.08. Fracture probability calculated for an untreated patient. Fracture probability may be lower if the patient has received treatment. Previous Exams: -- Region Exam Age BMD T-score BMD Change BMD Change Date g/cm2 vs Baseline vs Previous -- AP Spine (L1-L4) 10/30/2024 78 0.954 -0.8 5.9%* 5.9%* 11/18/2019 73 0.900 -1.3 Total Hip(Left) 10/30/2024 78 0.877 -0.5 0.6% 0.6% 11/18/2019 73 0.872 -0.6 Total Hip(Right) 10/30/2024 78 0.831 -0.9 -8.3%* -8.3%* 11/18/2019 73 0.906 -0.3 -- *Denotes significance at 95% confidence level, LSC for AP Spine = 0.022 g/cm2, LSC for Total Hip = 0.027 g/cm2 Clinical Information Provided by Patient: Has used the following medications: Vitamin D, Calcium Has the following medical conditions: Cancer Patient maximum height was 62 Menopause Age: 48 No regular weight bearing exercise Does not regularly consume dairy products Drinks caffeinated beverages Onset of menses at age 13 Number of children 1 Impression: The patient has low bone mass, based on the Right Femoral Neck T-score. The patient has an estimated ten-year risk of hip fracture of 3.1% and an estimated ten-year risk of major fracture of 13%, based on the WHO FRAX algorithm. The BMD for the Total Hip(Right) decreased, changing by -8.3% since the last DXA exam. Discussion: BONE DENSITY IS LOW AT ONE OR MORE SKELETAL SITES. THE PATIENT'S BMD AND CLINICAL RISK FACTORS CONTRIBUTE TO THIS PATIENT'S INCREASED RISK OF FRACTURE. This patient's lowest T-score is low at one or more skeletal sites. It meets the World Health Organization's (WHO) criteria for ?low bone mass? (T-score between -1.0 and -2.5). The patient's 10-year risk of hip fracture as calculated by FRAX exceeds the threshold where pharmacological therapy is recommended by the National Osteoporosis Foundation (NOF). However, all treatment decisions require clinical judgment and consideration of individual patient factors, including patient preferences, comorbidities, previous drug use, risk factors not captured in the FRAX model (e.g., frailty, falls, vitamin D deficiency, increased bone turnover, interval significant decline in bone density) and possible under or overestimation of fracture risk by FRAX. The patient should follow a healthful lifestyle (good nutrition with adequate calcium and vitamin D, and appropriate weight-bearing exercise). Follow-Up: Consider a repeat BMD and Vertebral Fracture Assessment (VFA) exam in 2 years or sooner if medically necessary, to reassess this patient's status. Reported by: [email or web address] on 10/30/2024 8:18:00 AM. Reviewed, dictated and finalized at location A.
== END 2024-10-30 07:56 | disposition home or self-care (01) ==
LOC: MICIMG 07:58
PROVIDERS: PCP Internal Medicine Hematology & Oncology; Visit Provider Family Medicine
DX: M85.852 Other specified disorders of bone density and structure, left thigh (principal); M85.851 Other specified disorders of bone density and structure, right thigh; Z78.0 Asymptomatic menopausal state
CPT/HCPCS: 77080